=== PATIENT | female | born 1980 | race Hispanic/Latino ===

== ENCOUNTER 2024-05-02 17:38 | Emergency (ER) | payer BC ==
[~2024-05-02] VITALS: Ht 165.1 cm; Wt 70.3 kg
--- NOTE | 2024-05-02 18:01 | ERN ---
ED Note History of Present Illness Stated Complaint: CHILLS, SICK FOR X 2 DAYS Chief Complaint: Flu Symptoms Time Seen by MD: 17:39 Time Seen by Midlevel: 17:39 Dictation: The patient is a 43-year-old female with no past medical history who presents to the emergency department with complaints of body aches, sore throat, bilateral ear pain, nonproductive cough onset yesterday. Patient reports her son flu at home. Denies any abdominal pain, vomiting, urinary discomfort. Allergies: Coded Allergies: No Known Drug Allergies (Unverified Allergy, Unknown, 05/02/24) Home Meds Active Scripts Oseltamivir Phosphate (Tamiflu) 75 Mg Cap, 75 MG PO BID, #10 CAP Prov:RYAN CORBETT [employer] 05/02/24 Past Medical History Past Medical History: No Pertinent History Surgical History: None RN Note Reviewed/Agreed w/PFSH: Yes Review of System Dictation Constitutional: Negative for and weight loss positive for fever, chills Eyes: Negative for injury, pain,redness, and discharge ENT: Negative for injury,pain or swelling positive for sore throat, bilateral ear pain Cardiovascular: Negative for chest pain, palpitations, and edema Respiratory: Negative for shortness of breath,and wheezing, positive for cough Abdomen/GI: Negative for abdominal pain, nausea, vomiting, diarrhea, and constipation Back: Negative for injury and pain : Negative for injury, bleeding and discharge MS/Extremity: Negative for injury and deformity Skin: Negative for rash, and discoloration Neuro: Negative for headache, weakness, numbness, tingling, and seizure Psych: Negative for suicide ideation, homicidal ideation, and hallucinations Initial Vital Sign VS Vital Signs Date Time Temp Pulse Resp B/P (MAP) Pulse Ox O2 Delivery O2 Flow Rate FiO2 05/02/24 17:48 102.6 124 18 108/70 99 05/02/24 19:44 Room Air* 0 21 Physical Exam Dictation Vital Signs reviewed General Appearance: Alert, oriented x 3, no acute distress, well developed, nourished. Head and Face: non-traumatic. Eyes: PERRL, pink conjunctivas, eyelid no trauma, anterior chamber with arcus senilis. Ears: Pinnas intact and no signs of trauma or erythema ear canals clear and no discharge TM no erythema Nose: No discharge, no bleeding. Oropharynx: Mouth normal, tongue pink. pharynx clear,no erythema, tonsils no exudates, no abscesses noted, mucous membrane moist Neck: Supple, non-tender, no thyromegaly, no masses, no JVD, no bruits Breast:Deferred Chest:No tenderness, no crepitus, no paradoxical movement, no retractions Lungs:Clear, well-ventilated, symmetric, no rales, no wheezing, no rhonchi, no stridor, good breath sounds bilaterally Heart: Regular rate, regular rhythm, no murmur, no gallops Vascular: no peripheral edema, Abdomen: Soft, positive bowel sounds, nondistended, no guarding, nontender, no rebound, no masses no hepatomegaly, no splenomegaly, no Shahid's sign, no hernias. Rectal: Deferred Genital: Deferred Neurological: Normal speech, motor function intact, sensory function intact Musculoskeletal: Neck nontender, full range of motion, back nontender, full range of motion, Extremities: nontender, full range of motion Skin: Color pink, dry, no turgor, no rash, no lacerations, no abrasions, no contusions. Lymphatic: Deferred Results (Laboratory/Radiology) Laboratory/Radiology Laboratory Tests Test 05/02/24 17:52 05/02/24 18:21 Influenza Type A Antigen Positive For Type A Influenza Type B Antigen Negative For Type B SARS-CoV-2 Antigen (Rapid) PRESUMPTIVE NEGATIVE Group A Streptococcus Rapid negative (NEGATIVE) Urine HCG, Qualitative NEGATIVE (NEGATIVE) REASON: cough ORDERING PHYSICIAN: RYAN CORBETT [employer] PROCEDURE: CXR1VW - CHEST 1VW PORTABLE CHEST RADIOGRAPH INDICATION: cough COMPARISON: None FINDINGS: Heart size is normal. The pulmonary vascularity and gavi appear normal. No abnormal pulmonary parenchymal opacity or consolidation identified. No significant pleural effusion noted. No pneumothorax detected. IMPRESSION: No radiographic evidence for any acute cardiopulmonary process. Labs Reviewed?: Yes ED Course ED Course Orders Procedure Category Date Status Time Covid19 (Sars Antigen LAB 05/02/24 Complete Rapid) 17:56 Influenza Type A & B, LAB 05/02/24 Complete Rapid 17:56 Rapid (Group A Strep) LAB 05/02/24 Complete 17:56 Chest 1vw RAD 05/02/24 Resulted 17:56 Acetaminophen 500mg PHA 05/02/24 Complete Tab (Tylenol 500mg T 18:00 ,Urine Test LAB 05/02/24 Complete 17:56 0.9%Nacl 1000ml (Ns PHA 05/02/24 Complete 1000ml) 18:00 Oseltamivir Phosphate PHA 05/02/24 Complete (Tamiflu) 18:30 Current Medications Medications (Trade) Dose Ordered Sig/Marissa Route PRN Reason Start Time Stop Time Status Last Admin Dose Admin Acetaminophen (TYLenol 500MG TAB) 1,000 mg ONCE ONCE PO 05/02/24 18:00 05/02/24 18:01 DC 05/02/24 18:15 Oseltamivir Phosphate (Tamiflu) 75 mg ONCE PO 05/02/24 18:30 05/02/24 19:58 DC 05/02/24 18:36 Sodium Chloride 1,000 ml @ 0 mls/hr ONCE ONCE IV 05/02/24 18:00 05/02/24 18:01 DC 05/02/24 18:15 Vital Signs Date Time Temp Pulse Resp B/P (MAP) Pulse Ox O2 Delivery O2 Flow Rate FiO2 05/02/24 19:44 100.4 81 18 148/74 98 Room Air* 0 21 05/02/24 17:48 102.6 124 18 108/70 99 Medical Decision Making [facility] The patient is a 43-year-old female with no past medical history who presents to the emergency department with complaints of body aches, sore throat, bilateral ear pain, nonproductive cough onset yesterday. Patient reports her son flu at home. Denies any abdominal pain, vomiting, urinary discomfort. Patient tested positive for flu A. Will be given Tamiflu. Patient received fluids and Tylenol in ER. Chest x-ray unremarkable. Patient instructed to fol low up with PCP. Differential diagnosis: Upper respiratory infection, pneumonia, flu a, Need for hospitalization: Patient does not meet criteria for hospitalization. There are no social concerns with this patient. DX & DISP Disposition: Discharge Departure Impression: Primary Impression: Influenza A Condition: Stable Scripts Oseltamivir Phosphate (Tamiflu) 75 Mg Cap 75 MG PO BID, #10 CAP Prov: RYAN CORBETT [employer] 05/02/24 Additional Instructions: FOLLOW-UP WITH PRIMARY CARE PROVIDER IN 1 TO 2 DAYS. TAKE MEDICATIONS DIRECTED HERE IN THE EMERGENCY ROOM. OKAY TO CONTINUE HOME MEDICATIONS UNLESS OTHERWISE DISCUSSED DURING YOUR VISIT IN THE EMERGENCY ROOM TODAY. RETURN TO YOUR NEAREST EMERGENCY ROOM IF SYMPTOMS WORSEN OR IF THERE IS NO IMPROVEMENT. CALL 911 IF YOU NEED IMMEDIATE ASSISTANCE. TAKE TYLENOL OR MOTRIN [id number] NEEDED AND IF NO CONTRAINDICATIONS ARE PRESENT. INCREASE ORAL HYDRATION. A WOUND CULTURE OR URINE CULTURE WAS ORDERED HERE IN THE EMERGENCY ROOM DEPARTMENT PLEASE FOLLOW-UP WITH PRIMARY CARE PROVIDER AND ADVISE THEM TO GET REPEAT PORTS FROM OUR FACILITY. IF YOU HAD ANY ALIRIO WRAP/SPLINTS THAT WERE APPLIED HERE, PLEASE DO NOT REMOVE THEM UNTIL YOU SEE YOUR PRIMARY CARE OR SPECIALTY. Referrals: SELF,REFERRAL (PCP) Time of Disposition: 19:14 I have reviewed the case, and I agree with, Diagnosis and Plan I performed a substantive portion of the visit. I have reviewed and personally made and approve the management plan that is documented in the notes by myself with DAMON/resident. I acknowledged full responsibility for the patient's management plan. RYAN CORBETT May 02, 2024 18:01 KOURTNEY CELESTE DO May 02, 2024 20:04
[2024-05-02 18:13] LABS: RAPID GROUP A STREP negative (NEGATIVE)
[2024-05-02] MEDS: acetaMINOPHEN 500 MG TABLET PO ONE (18:15)
[2024-05-02] MEDS: 0.9%NACL 1000ML 1,000 ML IV ONE (18:15)
[2024-05-02 18:23] LABS: INFLUENZA TYPE B Negative For Type B (NEGATIVE)
[2024-05-02 18:27] LABS: INFLUENZA TYPE A Positive For Type A (NEGATIVE)
[2024-05-02] MEDS: OSELTAMIVIR PHOSPHATE 75 MG CAP PO SCH (18:36)
[2024-05-02 18:44] LABS: COVID19 (SARS ANTIGEN RAPID) PRESUMPTIVE NEGATIVE (NEGATIVE)
--- NOTE | 2024-05-02 19:07 | HMCIMG ---
PORTABLE CHEST RADIOGRAPH INDICATION: cough COMPARISON: None FINDINGS: Heart size is normal. The pulmonary vascularity and gavi appear normal. No abnormal pulmonary parenchymal opacity or consolidation identified. No significant pleural effusion noted. No pneumothorax detected. IMPRESSION: No radiographic evidence for any acute cardiopulmonary process.
[2024-05-02] MEDS ORDERED: OSEL75 PO (19:16)
[2024-05-02 19:44] VITALS: BP 148/74; PULSE 81; RESP 18; TEMP 100.4; O2SAT 98
== END 2024-05-02 19:58 | disposition home or self-care (01) ==
LOC: EDH 17:38
DX: J10.1 Influenza due to other identified influenza virus with other respiratory manifestations (principal); Z20.822 Contact with and (suspected) exposure to COVID-19
CPT/HCPCS: 99283; 96360; 71045; 87426; 87880; 87804 ×2; 81025; J7030